=== PATIENT | male | born 1990 | race Caucasian/White ===

== ENCOUNTER 2023-08-25 12:38 | Emergency (ER) | payer MEDICAID ==
[2023-08-25 12:52] VITALS: TEMP 98.1
[2023-08-25] MEDS ORDERED: DECADRON 10MG INJ. IM ONE (13:09)
[2023-08-25] MEDS ORDERED: DECADRON 10MG INJ. ONE (13:15)
--- NOTE | 2023-08-25 13:18 | ERPHSYRPT ---
- History of Present Illness Time Seen by Provider: 08/25/23 13:05 Source: patient Patient Subjective Stated Complaint: Pt states that he had a MRI years ago and said that he has a herniated disc, pt states that he throws his back out occassionally and he was moving stuff in the barn yesterday and injured it again Triage Nursing Assessment: Pt was brought to the ER by his brother, hypertensive, rates back pain as 8/10, pt states that the pain radiates around to the right leg and into the groin, pulses normal, skin n/w/d, no difficulties with breathing, states that he just moved here recently, walked to the room with a slow steady gait and slightly hunched over Physician History: The patient is a 32-year-old with a history of previous MRI showing disc disease in the lumbar spine.The patient is having low back pain after moving around and straining his back. It got worse when he woke up. It radiates down his right leg. The patient denies any bowel or bladder dysfunction. The patient this point denied any significant trauma. Was more of a lifting injury. Allergies/Adverse Reactions: aspirin Allergy (Verified 08/25/23 12:52) bee venom protein (honey bee) Allergy (Verified 08/25/23 12:52) latex Allergy (Verified 08/25/23 12:52) Hx Influenza Vaccination/Date Given: No Hx Pneumococcal Vaccination/Date Given: No Travel Risk - International Travel Have you traveled outside of the country in past 3 weeks: No - Coronavirus Screening Are you exhibiting any of the following symptoms?: No Symptoms: Shortness of Breath Close contact with a COVID-19 positive Pt in past 14-21 Days: No - Vaccine Status Have you recieved a Covid-19 vaccination: No - Review of Systems Constitutional: No Fever, No Chills Eyes: No Symptoms Ears, Nose, & Throat: No Symptoms Respiratory: No Cough, No Dyspnea Cardiac: No Chest Pain, No Edema, No Syncope Abdominal/Gastrointestinal: No Abdominal Pain, No Nausea, No Vomiting, No Diarrhea Genitourinary Symptoms: No Dysuria Musculoskeletal: Back Pain, No Neck Pain Skin: No Rash Neurological: No Dizziness, No Focal Weakness, No Sensory Changes Psychological: No Symptoms Endocrine: No Symptoms All Other Systems: Reviewed and Negative - Past Medical History Pertinent Past Medical History: Yes Cardiac History: Hypertension, Myocardial Infarction ([place]) Respiratory History: Asthma Musculoskeletal History: Other Psycho-Social History: Anxiety - Past Surgical History Past Surgical History: Yes Gastrointestinal: Hernia Repair - Social History Smoking Status: Current every day smoker How long have you smoked: 0.1 Exposure to second hand smoke: Yes Drug Use: none Patient Lives Alone: No - Nursing Vital Signs Nursing Vital Signs: Initial Vital Signs Temperature 98.1 F 08/25/23 12:42 Pulse Rate 83 08/25/23 12:42 Blood Pressure 176/92 08/25/23 12:42 O2 Sat by Pulse Oximetry 99 08/25/23 12:42 Pain Scale Pain Intensity [Posterior 8 Medial Distal Back] Pain Intensity 6 - Physical Exam General Appearance: no apparent distress, alert Eye Exam: PERRL/EOMI, eyes nml inspection Neck Exam: normal inspection, non-tender, supple, full range of motion, No meningismus, No midline tenderness Respiratory Exam: normal breath sounds, lungs clear, No respiratory distress Cardiovascular Exam: regular rate/rhythm, normal heart sounds Gastrointestinal Exam: soft, No tenderness, No mass Back Exam: decreased range of motion, muscle spasm (The patient has paraspinal muscle tenderness and a positive straight leg raise but neuro intact neurologic exam of the lower extremities good pulses in the lower extremities) Extremity Exam: normal inspection, normal range of motion, No calf tenderness, No pedal edema Neurologic Exam: alert, oriented x 3, cooperative, 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, normal mood/affect, nml station & gait, sensation nml, No motor deficits Skin Exam: normal color, warm, dry, No rash SpO2 Interpretation: normal SpO2: 99 O2 Delivery: Room Air - Course Nursing assessment & vital signs reviewed: Yes Ordered Tests: Medication Summary Discontinued Medications Generic Name Dose Route Start Last Admin Trade Name Freq PRN Reason Stop Dose Admin Dexamethasone Sodium Phosphate 10 mg 08/25/23 13:09 08/25/23 13:16 Dexamethasone Sod Phosphate 10 Mg/Ml IM 08/25/23 13:10 10 mg STAT ONE Administration Dexamethasone Sodium Phosphate Confirm 08/25/23 13:15 Dexamethasone Sod Phosphate 10 Mg/Ml Administered 08/25/23 13:16 Dose 10 mg .ROUTE .STK-MED ONE Ibuprofen 600 mg 08/25/23 13:35 08/25/23 13:39 Ibuprofen 600 Mg Tablet PO 08/25/23 13:36 600 mg STAT ONE Administration Ibuprofen Confirm 08/25/23 13:37 Ibuprofen 600 Mg Tablet Administered 08/25/23 13:38 Dose 600 mg .ROUTE .STK-MED ONE - Progress Progress: improved Progress Note: This patient presents with back pain most consistent with Disc disease and lumbar strain with complicated by sciatica. Differential diagnoses includes lumbago versus musculoskeletal spasm / strain versus sciatica. No back pain red flags on history or physical. Presentation not consistent with malignancy (lack of history of malignancy, lack of B symptoms), fracture (no trauma, no bony tenderness to palpation), cauda equina (no bowel or urinary incontinence/retention, no saddle anesthesia, no distal weakness), AAA, viscus perforation, osteomyelitis or epidural abscess (no IVDU, vertebral tenderness), renal colic, pyelonephritis (afebrile, no CVAT, no urinary symptoms). Given the clinical picture, no indication for imaging at this time. pt states can take ibuprofen 08/25/23 13:35 - Departure Departure Disposition: Home Clinical Impression: Acute low back pain, Sciatica Condition: Good Critical Care Time: No Referrals: DOCTOR,NO FAMILY [Primary Care Provider] - Follow up/PCP as directed Instructions: Low Back Pain (DC), Sciatica (DC) Additional Instructions: Thank you for choosing our Emergency Department for your healthcare! Please take your medicines prescribed as directed and be assured that you follow up with the physician provided or your PCP in the next 1-2 days to assure you are improving. All medical problems cannot be reasonably diagnosed in your ED visit today. Return for any changes or concerns, including if your condition does not improve or you are unable to obtain follow-up. Some final results, including radiology reports, do not return the same day, but are available on the patient portal or can be obtained through your PCP. Follow-up with primary care doctor. Prescriptions: Hydrocodone/APAP 5/325 [[place] 5/325 mg] 1 each PO Q6H PRN PRN #10 tablet MDD 6 PRN Reason: Pain Methylprednisolone Packet [Medrol Dosepack] 4 mg PO UD #1 packet Naproxen 500 mg [Naprosyn 500 MG] 500 mg PO BIDPRN PRN #20 tablet PRN Reason: Pain
[2023-08-25] MEDS ORDERED: MOTRIN 600 MG PO ONE (13:35)
[2023-08-25] MEDS ORDERED: MOTRIN 600 MG ONE (13:37)
[2023-08-25 14:04] VITALS: BP 149/99; PULSE 96; RESP 18
[2023-08-25 15:20] VITALS: O2SAT 99
== END 2023-08-25 14:00 | disposition home or self-care (01) ==
LOC: ED 12:38
DX: M54.41 Lumbago with sciatica, right side (principal); I10 Essential (primary) hypertension; Z79.52 Long term (current) use of systemic steroids; Z79.891 Long term (current) use of opiate analgesic; Z28.310 Unvaccinated for COVID-19; Z72.0 Tobacco use
CPT/HCPCS: 96372; 99283; J1100; A9270-GY